=== PATIENT | female | born 1950 | race Caucasian/White ===

== ENCOUNTER → 2018-06-18 08:03 | Outpatient (CLI) | payer OTHER, SELFPAY ==
--- NOTE | 2018-06-18 08:07 | DI.MG.S_ITS ---
BILATERAL DIGITAL SCREENING MAMMOGRAM 3D/2D WITH CAD: 06/18/2018 CLINICAL: Routine screening. Comparison is made to exams dated: 11/08/2009 mammogram, 12/28/2008 mammogram, and 12/13/2008 mammogram - [facility]. The tissue of both breasts is heterogeneously dense. This may lower the sensitivity of mammography. Current study was also evaluated with a Computer Aided Detection (CAD) system. No significant masses, calcifications, or other findings are seen in either breast. There has been no significant interval change. IMPRESSION: NEGATIVE There is no mammographic evidence of malignancy. A 1 year screening mammogram is recommended. This exam was interpreted at Station ID: [id number]. NOTE: For mammograms, a report in lay terms will be sent to the patient. Approximately 15% of breast malignancies will not be visualized mammographically. In the management of a palpable breast mass, a negative mammogram must not discourage biopsy of a clinically suspicious lesion. Electronically Signed By: Jatin vallejo/cinthia:06/18/2018 17:13:27 letter sent: Normal Exam ACR BI-RADS Category 1: Negative 3341F
== END ==
PROVIDERS: PCP Family Medicine; Visit Provider Family Medicine
DX: Z12.31 Encounter for screening mammogram for malignant neoplasm of breast (principal)
CPT/HCPCS: 77063; 77067

== ENCOUNTER → 2018-06-25 15:03 | Outpatient (CLI) | payer OTHER, SELFPAY | PROVIDERS: PCP Family Medicine; Visit Provider Family Medicine | DX: N89.8 Other specified noninflammatory disorders of vagina (principal) | CPT/HCPCS: 87070; 87077; 87147; 87205 ==

== ENCOUNTER → 2018-09-09 07:51 | Outpatient (CLI) | payer OTHER, SELFPAY | PROVIDERS: PCP Family Medicine; Visit Provider Family Medicine | DX: Z13.9 Encounter for screening, unspecified (principal) ==

== ENCOUNTER → 2018-09-10 08:29 | Outpatient (CLI) | payer OTHER, SELFPAY ==
[2018-09-10 09:15] LABS: Hematocrit 40.8 % (36-46); Hemoglobin 13.8 g/dL (12.0-16.0); Mean Corpuscular HGB Conc 33.9 % (30-36); Mean Corpuscular Hemoglobin 31.2 PG (26-34); Platelet Count 298 X10^3/uL (150-400); Red Blood Cell Count 4.44 X10^6/uL (4.0-5.2); Red Cell Distribution Width 12.9 % (11.6-14.8); White Blood Cell Count 7.9 X10^3/uL (4.5-11.0)
[2018-09-10 09:16] LABS: Add Manual Diff / Slide Review YES
[2018-09-10 09:23] LABS: Appearance Urine UA CLEAR; Bilirubin Urine UA NEGATIVE (NEGATIVE); Color Urine UA YELLOW; Glucose Urine UA NEGATIVE (Negative); Ketones Urine UA NEGATIVE (NEGATIVE); Leukocyte Esterase Urine UA TRACE (NEGATIVE); Nitrite Urine UA NEGATIVE (Negative); Occult Blood Urine UA TRACE-INTACT (Negative); Protein Urine UA NEGATIVE (Negative); Urobilinogen Urine UA 0.2 E.U./dL (0.2)
[2018-09-10 09:27] LABS: Bacteria Urine None Seen
[2018-09-10 09:30] LABS: Neutrophils Absolute Manual 3318 /uL (3000-5900); Total Cells Counted 100
[2018-09-10 09:32] LABS: Culture Indicated Urine Cult Not Indicated; RBC Urine 1-5/HPF (0-5/HPF); Squamous Epithelial Cell Urine 5-10 /HPF; WBC Urine 5-10/HPF (0-5/HPF)
[2018-09-10 10:03] LABS: Alanine Aminotransferase 16 IU/L (9-52); Albumin 4.5 g/dL (3.5-5.0); Albumin Globulin Ratio 1.5 (1.0-2.8); Alkaline Phosphatase 91 U/L (38-126); Aspartate Aminotransferase 22 IU/L (14-36); Bilirubin Total 0.4 mg/dL (0.2-1.3); Blood Urea Nitrogen 16 mg/dL (7-17); Calcium 9.2 mg/dL (8.4-10.2); Carbon Dioxide 25 mmol/L (22-32); Chloride 107 mmol/L (98-107); Cholesterol 222 mg/dL (140-199); Estimated Glomerular Filt Rate > 60.0 mL/min (>60); Globulin 3.1 g/dL (1.7-4.1); Glucose 99 mg/dL (80-110); HDL Cholesterol 47 mg/dL (40-60); HEMOLYSIS < 15 (0-50); LDL Cholesterol Calculated 152 mg/dL (<100); Potassium 4.5 mmol/L (3.4-5.1); Sodium 141 mmol/L (137-145); Total Protein 7.6 g/dL (6.3-8.2); Triglycerides 117 mg/dL (35-150)
[2018-09-10 10:26] LABS: Thyroid Stimulating Hormone 2.14 uIU/mL (0.47-4.68)
[2018-09-10 10:27] LABS: Cancer Antigen 125 10 U/mL (0-35)
== END ==
PROVIDERS: PCP Family Medicine; Visit Provider Family Medicine
DX: Z00.00 Encounter for general adult medical examination without abnormal findings (principal); Z51.81 Encounter for therapeutic drug level monitoring; Z80.41 Family history of malignant neoplasm of ovary
CPT/HCPCS: 36415; 80053; 80061; 81003; 81015; 84443; 85025; 86304

== ENCOUNTER → 2018-09-17 11:52 | Outpatient (CLI) | payer OTHER, SELFPAY ==
[2018-09-17 12:21] LABS: Hematocrit 42.5 % (36-46); Hemoglobin 14.2 g/dL (12.0-16.0); Mean Corpuscular HGB Conc 33.4 % (30-36); Mean Corpuscular Hemoglobin 30.6 PG (26-34); Mean Corpuscular Volume 91.6 fL (80-100); Platelet Count 296 X10^3/uL (150-400); Red Blood Cell Count 4.63 X10^6/uL (4.0-5.2); Red Cell Distribution Width 12.5 % (11.6-14.8); White Blood Cell Count 10.2 X10^3/uL (4.5-11.0)
[2018-09-17 12:43] LABS: Hypochromasia 1+; Neutrophils Absolute Manual 4692 /uL (3000-5900); Total Cells Counted 100
[2018-09-17 12:44] LABS: Anisocytosis 1+
== END ==
PROVIDERS: PCP Family Medicine; Visit Provider Family Medicine
DX: R79.89 Other specified abnormal findings of blood chemistry (principal)
CPT/HCPCS: 36415; 85025

== ENCOUNTER → 2020-01-11 13:48 | Outpatient (CLI) | payer OTHER, SELFPAY ==
[2020-01-13 23:35] LABS: COVID19 Sendout Not Detected (Not Detected)
== END ==
PROVIDERS: PCP Family Medicine; Visit Provider Registered Nurse
DX: Z11.59 Encounter for screening for other viral diseases (principal)
CPT/HCPCS: 87635

== ENCOUNTER → 2020-05-29 14:01 | Outpatient (CLI) | payer OTHER, SELFPAY ==
[2020-05-30 06:50] LABS: COVID19 Sendout Not Detected (Not Detect)
== END ==
PROVIDERS: PCP Family Medicine; Visit Provider Physician Assistant
DX: Z11.59 Encounter for screening for other viral diseases (principal)
CPT/HCPCS: 87635

== ENCOUNTER → 2020-08-25 08:18 | Outpatient (CLI) | payer OTHER, SELFPAY ==
--- NOTE | 2020-08-25 08:19 | DI.MG.S_ITS ---
BILATERAL DIGITAL SCREENING MAMMOGRAM 3D/2D WITH CAD: 08/25/2020 CLINICAL: Routine screening. Comparison is made to exams dated: 06/18/2018 mammogram, 11/08/2009 mammogram, and 12/13/2008 mammogram - [facility]. The tissue of both breasts is heterogeneously dense. This may lower the sensitivity of mammography. Current study was also evaluated with a Computer Aided Detection (CAD) system. No significant masses, calcifications, or other findings are seen in either breast. There has been no significant interval change. IMPRESSION: NEGATIVE There is no mammographic evidence of malignancy. A 1 year screening mammogram is recommended. This exam was interpreted at Station ID: [id number]. NOTE: For mammograms, a report in lay terms will be sent to the patient. Approximately 15% of breast malignancies will not be visualized mammographically. In the management of a palpable breast mass, a negative mammogram must not discourage biopsy of a clinically suspicious lesion. Electronically Signed By: Joce Barbosa M.D., jr/cinthia:08/27/2020 09:07:48 letter sent: Normal Exam ACR BI-RADS Category 1: Negative 3341F
== END ==
PROVIDERS: PCP Internal Medicine; Referring Provider Internal Medicine; Visit Provider Internal Medicine
DX: Z12.31 Encounter for screening mammogram for malignant neoplasm of breast (principal)
CPT/HCPCS: 77063; 77067

== ENCOUNTER → 2020-12-07 09:04 | Outpatient (CLI) | payer OTHER, SELFPAY ==
[2020-12-07 11:29] LABS: COVID19 -Nasal RAPID Negative (Negative)
== END ==
PROVIDERS: PCP Internal Medicine; Visit Provider Surgery
DX: Z01.812 Encounter for preprocedural laboratory examination (principal); Z20.822 Contact with and (suspected) exposure to COVID-19
CPT/HCPCS: 87635; C9803

== ENCOUNTER 2020-12-10 08:48 | Day surgery (SDC) | payer OTHER, SELFPAY ==
[2020-12-10] MEDS: LACTATED RINGERS 1,000 ML 200 ML IV (08:57)
[2020-12-10 09:06] VITALS: BP 120/80; PULSE 83; RESP 16; TEMP 36.7; O2SAT 100; BMI 57.9
--- NOTE | 2020-12-10 09:59 | PM.HP.1 ---
History of Present Illness History of Present Illness Date Patient Seen: 12/10/20 Time Patient Seen: 09:59 Chief complaint: SDC Narrative: The patient presents for colorectal sreening. Most recent colonoscopy 10 years ago was normal.. No personal or family history of colon cancer. On further history denies any recent gastrointestinal symptoms. No nausea, vomiting, abdominal pain, loss of appetite, unexplained weight loss, change in bowel habits, diarrhea, constipation, melena, hematochezia, or bright red blood per rectum. 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) Surgical History H/O section Family & Social History Family History Mother Age related osteoporosis Ovarian cancer Father Dementia Grandfather FH: prostate cancer Brother Heart disease Social History: household members spouse Tobacco & Substance use: Smoking Status Never smoker alcohol intake frequency a few times a month Substance Use Type does not use Meds Home Medications and Allergies Home Medications Medication Instructions Recorded Confirmed Type ASPIRIN (Aspir-Low) 81 mg PO PRN #0 02/13/11 12/10/20 History Allergies Allergy/AdvReac Type Severity Reaction Status Date / Time moxifloxacin [MOXIFLOXACIN] Allergy Unknown Verified 07/06/20 09:08 Review of Systems Review of Systems ROS: Yes All systems reviewed with the patient and are negative except as otherwise documented Exam Vital Signs (past 8 hours): - 12/10/20 09:06 Temperature 98.1 F Pulse Rate 83 Respiratory Rate 16 Blood Pressure 120/80 Pulse Oximetry 100 Oxygen Delivery Method Room Air Narrative Exam Narrative: GENERAL-well developed adult woman, no acute distress HEENT-no scleral icterus, hearing intact NECK-no JVD, trachea midline CVS- regular rate, no peripheral edema RESP-unlabored respiratory effort, no audible wheezing GI-soft, nontender nondistended MSK-no cyanosis or clubbing, extremities without deformity SKIN-warm, dry NEURO-alert and oriented, no focal deficits PYSCH-Appropriate mood and affect Assessment & Plan Assessment & Plan narrative: The patient requires colorectal screening and colonoscopy is recommended. Technical details were discussed. Risks, benefits, alternatives explained. Risks including but not limited to myocardial infarction, aspiration, bleeding, pain, missed lesion, incomplete examination, need for further radiographic studies, colonic perforation, and need for major abdominal surgery were discussed. All questions were answered to their satisfaction, and they are in agreement with this plan.
[2020-12-10] MEDS: fentaNYL 250 MCG/5 ML INJ IV (10:16)
[2020-12-10] MEDS: MIDAZOLAM 5 MG/5 ML VIAL IV (10:16)
--- NOTE | 2020-12-10 10:27 | PM.OP.ENDO ---
Operative Date/Time/Diagnoses Date of procedure: 12/10/20 Time of procedure: 10:27 Pre-op diagnosis: Screening colonoscopy Post-op diagnosis: same Procedure & Clinicians Study performed: Colonoscopy Same procedure as scheduled: Yes Indications: Screening colonoscopy Surgeon: Kurt Coon Procedure Notes Procedure in detail: Medications: Conscious sedation using 5 mg IV midazolam and 150 mcg IV of fentanyl The history and physical was performed/updated and the patient is ASA class is 1. The procedure was discussed in detail with the patient. Potential risks complications including infection, bleeding, missed diagnosis, perforation, need for surgery, and were explained. Their questions were answered and informed consent was obtained. Patient was brought to the procedure room and placed standard monitoring equipment. The patient's vital signs were monitored continuously throughout the entire procedure. Prior to starting time-out was performed. The patient was placed in the left lateral recumbent position. Procedural sedation was administered. Examination began with a thorough inspection of the perianal area there was no evidence of fissures, fistulae, external hemorrhoids or cutaneous malignancy. The colonoscopy scope was then placed into the anal canal and was advanced to the cecum, which was identified by the ileocecal valve, the appendiceal orifice and the confluence of the taenia. The scope was then slowly withdrawn examining colon thoroughly in all directions, irrigating it of any residual stool. 1. No masses or polyps 2. Grade 1 internal hemorrhoids The patient tolerated the procedure well. They will be discharged once criteria are met. The prep was of good/excellent quality. The withdrawl time was 7 minutes. The sedation time was 16 minutes. Specimen(s): none sent Impression: Normal colonoscopy Post-procedure Recommendations: Colonscopy in 10 years and High fiber diet Disposition: same day surgery
[2020-12-10 10:29] VITALS: BP 142/65; PULSE 80; RESP 10; TEMP 36.3; O2SAT 95
[2020-12-10 10:38] VITALS: BP 111/67; PULSE 80; RESP 12; O2SAT 96
[2020-12-10 10:43] VITALS: BP 114/70; PULSE 80; RESP 14; TEMP 36.6; O2SAT 95
[2020-12-10 11:10] VITALS: BP 123/81; PULSE 75; RESP 16; TEMP 36.3; O2SAT 100
== END 2020-12-10 11:22 | disposition home or self-care (01) ==
PROVIDERS: PCP Internal Medicine; Referring Provider Surgery; Visit Provider Surgery
PROC: 0DJD8ZZ Inspection of Lower Intestinal Tract, Via Natural or Artificial Opening Endoscopic (ICD-10-PCS; CPT 45378; principal; 2020-12-10 10:00)
DX: Z12.11 Encounter for screening for malignant neoplasm of colon (principal); K64.0 First degree hemorrhoids
CPT/HCPCS: G0121; 99152; J2250; J3010

== ENCOUNTER → 2021-05-07 15:08 | Outpatient (CLI) | payer OTHER, SELFPAY | PROVIDERS: PCP Internal Medicine; Referring Provider Internal Medicine; Visit Provider Internal Medicine | DX: M85.80 Other specified disorders of bone density and structure, unspecified site (principal); Z78.0 Asymptomatic menopausal state; M85.852 Other specified disorders of bone density and structure, left thigh; M85.851 Other specified disorders of bone density and structure, right thigh | CPT/HCPCS: 77080 ==

== ENCOUNTER → 2021-08-26 16:26 | Outpatient (CLI) | payer OTHER, SELFPAY ==
--- NOTE | 2021-08-26 16:29 | DI.MG.S_ITS ---
BILATERAL DIGITAL SCREENING MAMMOGRAM 3D/2D WITH CAD: 08/26/2021 CLINICAL: Routine screening. Comparison is made to exams dated: 08/25/2020 mammogram, 06/18/2018 mammogram, and 11/08/2009 mammogram - [facility]. The tissue of both breasts is heterogeneously dense. This may lower the sensitivity of mammography. Current study was also evaluated with a Computer Aided Detection (CAD) system. No significant masses, calcifications, or other findings are seen in either breast. There has been no significant interval change. IMPRESSION: NEGATIVE There is no mammographic evidence of malignancy. A 1 year screening mammogram is recommended. This exam was interpreted at Station ID: [id number]. NOTE: For mammograms, a report in lay terms will be sent to the patient. Approximately 15% of breast malignancies will not be visualized mammographically. In the management of a palpable breast mass, a negative mammogram must not discourage biopsy of a clinically suspicious lesion. Electronically Signed By: Thomas jett/cinthia:08/27/2021 09:11:57 letter sent: Normal Exam ACR BI-RADS Category 1: Negative 3341F
== END ==
PROVIDERS: PCP Internal Medicine; Referring Provider Internal Medicine; Visit Provider Internal Medicine
DX: Z12.31 Encounter for screening mammogram for malignant neoplasm of breast (principal)
CPT/HCPCS: 77063; 77067

== ENCOUNTER → 2022-02-07 07:04 | Outpatient (CLI) | payer OTHER, SELFPAY ==
[2022-02-07 09:37] LABS: Erythrocyte Sedimentation Rate 18 MM/HR (0-20)
[2022-02-07 09:53] LABS: Alanine Aminotransferase 14 IU/L (<35); Albumin 4.3 g/dL (3.5-5.0); Albumin Globulin Ratio 1.5 (1.0-2.8); Alkaline Phosphatase 88 U/L (38-126); Aspartate Aminotransferase 25 IU/L (14-36); BUN Creatinine Ratio 19.3 (6-22); Bilirubin Total 0.4 mg/dL (0.2-1.3); Blood Urea Nitrogen 17 mg/dL (7-17); Calcium 9.1 mg/dL (8.4-10.2); Carbon Dioxide 27 mmol/L (22-32); Chloride 106 mmol/L (98-107); Cholesterol 207 mg/dL (140-199); Estimated Glomerular Filt Rate > 60 mL/min (>60); Globulin 2.9 g/dL (1.7-4.1); Glucose 100 mg/dL (80-110); HDL Cholesterol 50 mg/dL (40-60); HEMOLYSIS < 15 (0-50); LDL Cholesterol Calculated 131 mg/dL (<100); Potassium 4.9 mmol/L (3.4-5.1); Sodium 140 mmol/L (137-145); Total Protein 7.2 g/dL (6.3-8.2); Triglycerides 129 mg/dL (35-150)
== END ==
PROVIDERS: PCP Internal Medicine; Referring Provider Internal Medicine; Visit Provider Internal Medicine
DX: Z13.6 Encounter for screening for cardiovascular disorders (principal); M25.50 Pain in unspecified joint; N95.1 Menopausal and female climacteric states
CPT/HCPCS: 36415; 80053; 80061; 85651

== ENCOUNTER → 2022-06-24 10:37 | Outpatient (CLI) | payer OTHER, SELFPAY | PROVIDERS: Family Provider Internal Medicine; PCP Internal Medicine; Referring Provider Internal Medicine; Visit Provider Internal Medicine ==

== ENCOUNTER → 2022-09-03 15:15 | Outpatient (CLI) | payer OTHER, SELFPAY ==
--- NOTE | 2022-09-03 | DI.MG.S_ITS ---
BILATERAL DIGITAL SCREENING MAMMOGRAM 3D/2D WITH CAD: 09/03/2022 CLINICAL: Routine screening. Comparison is made to exams dated: 08/26/2021 mammogram, 08/25/2020 mammogram, 06/18/2018 mammogram, 12/28/2008, and 11/08/2009 mammogram - [facility]. Both breasts are heterogeneously dense, which may obscure small masses (category c / 51-75% glandular tissue). Current study was also evaluated with a Computer Aided Detection (CAD) system. No significant masses, calcifications, or other findings are seen in either breast. There has been no significant interval change. IMPRESSION: NEGATIVE There is no mammographic evidence of malignancy. A 1 year screening mammogram is recommended. Based on the Tyrer Cuzick model (a risk assessment model) the patient's lifetime risk is 7.3% and her 10 year risk is 4.7%. According to the ACR, ACS, and NCCN guidelines, an annual breast MRI exam along with mammogram is recommended if the patient's lifetime risk is 20% or greater. This exam was interpreted at Station ID: [id number]. NOTE: For mammograms, a report in lay terms will be sent to the patient. Approximately 15% of breast malignancies will not be visualized mammographically. In the management of a palpable breast mass, a negative mammogram must not discourage biopsy of a clinically suspicious lesion. Electronically Signed By: Joce Barbosa M.D., jr/cinthia:09/04/2022 13:28:01 letter sent: Normal Exam ACR BI-RADS Category 1: Negative 3341F
== END ==
PROVIDERS: Family Provider Internal Medicine; PCP Internal Medicine; Referring Provider Internal Medicine; Visit Provider Internal Medicine
DX: Z12.31 Encounter for screening mammogram for malignant neoplasm of breast (principal)
CPT/HCPCS: 77063; 77067

== ENCOUNTER 2022-11-04 14:26 | Outpatient (RCR) | payer OTHER, SELFPAY ==
--- NOTE | 2022-11-04 16:00 | PT.OIE ---
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) Past Surgical History (Last Reviewed 12/10/20 @ 09:59 by Kurt Coon MD) H/O section Visit Care Team Role Provider Type Wilmer Johnson MD Attending Provider Physician Family Provider Primary Care Provider Referring Provider Specialty: Internal Medicine Address: [address] [place] [address], [address], [facility] Email: [email or web address] Physical Therapy Initial Evaluation PT-OP-A Visit Information Start: 11/04/22 11:21 Freq: Status: Active Protocol: Document 11/04/22 14:39 AMB (Rec: 11/04/22 15:49 AMB [id number]) Out-Patient Physical Therapy Visit Information Visit Information Visit Type Initial Evaluation Visit Start Time 14:30 Visit Stop Time 15:15 Total Visit Minutes 45 Visit Number 1 PT-OP-B Current Condition Start: 11/04/22 11:21 Freq: Status: Active Protocol: Document 11/04/22 14:39 AMB (Rec: 11/04/22 15:49 AMB [id number]) Current Condition History of Current Condition Onset Date 1 year Current Complaints leaking a night History of Current Condition Worst since menopause, became noticable during the pandemic. Leaking at night. If has a full bladder and sneezes can leak. Not even aware of when leaking, when waking up between 2-3 has to change underwear, if pt has had a lot of fluid in the evening that certainly makes it worse. Did get a yeast infection in August and did have pain with inserting the applicator. . Does notice running water as being a trigger intermittently . Personal Factors Other Personal Factors That May Effect Hx 3 c sections Therapy/Recovery PT-OP-C Subjective Start: 11/04/22 11:21 Freq: Status: Active Protocol: Document 11/04/22 14:39 AMB (Rec: 11/09/22 10:05 AMB [id number]) Patient Questionnaires Pelvic Pain and Urgency/Frequency Patient Symptom Scale Pelvic Pain Score 7 PT-OP-I Pelvic Floor Start: 11/04/22 11:21 Freq: Status: Active Protocol: Document 11/04/22 14:39 AMB (Rec: 11/04/22 15:49 AMB [id number]) Pelvic Floor Assessment Urine Pelvic Floor Surgery No Urinary Symptoms Urge Sensation,Dribbling After Urination,Pain Leakage Size Small Other Leakage Causes sleep Leaks Per Day 1 Voiding Frequency 5-6/day Nocturia 2 Pelvic Clock Pelvic Clock Other tenderness throughout pelvic floor, most at perineum Prolapse Prolapse Comments difficult to assess due to discomfort, no rectocele or uterine prolapse noted Contraction Ability Voluntary Contraction Moderate Voluntary Relaxation Moderate Manual Muscle Testing Left 3 Manual Muscle Testing Right 3 Manual Muscle Testing Anterior 3 Manual Muscle Testing Posterior 3 Muscle Endurance (Seconds) 8 Number of Quick Contractions In 10 4 Seconds Comments Pelvic Floor Comments Good first layer contraction, levator ani had reduced lift PT-OP-T Assessment and Plan Start: 11/04/22 11:21 Freq: Status: Active Protocol: Document 11/04/22 14:39 AMB (Rec: 11/04/22 15:49 AMB [id number]) Physical Therapy Assessment Goals 2 Impairment Pelvic floor strength Short Term Goal (STG) Inga will show improved pelvic floor strength by moving from sit to stand while holding a pelvic floor contraction. STG Duration 10 weels One Impairment Continence Short Term Goal (STG) Inga will roll over in bed without leaking. STG Duration 5 weeks Correction Goal (LTG) Inga will get up from bed without leaking. LTG Duration 10 weeks Assessment Summary Assessment Inga attends physical therapy most concerned about worsening urinary leaking at night. She states leaking has been present since menopause with a full bladder and a sneeze, but now she will wake up at night and realize her underwear are wet. She is not aware of what is causing the leaking. Pelvic floor muscles when tested were moderately strong especially considering age and post menopausal status . Pt will benefit from further strengthening and assessment of her leaking. Physical Therapy Plan Frequency and Duration Frequency of Treatment 1x/Week Duration of treatment (weeks) 10 Plan of Care Start Date 11/04/22 Plan of Care End Date 01/13/23 Therapeutic Interventions Therapeutic Interventions Home Exercise Program,Manual Therapy,Neuromuscular Re- education,Patient/Caregiver Education,Therapeutic Activities,Therapeutic Exercises Modalities Biofeedback,Electric Stimulation Next Visit Focus/Plan Next Note Type Treatment Note Next Visit Plan Review pelvic floor strengthening exercises, can try sEMG
--- NOTE | 2022-11-04 16:00 | PT.OPPOC ---
Physical, Occupational & Speech Therapy At [facility] Current Diagnoses Unspecified urinary incontinence (11/04/22) Visit Care Team Role Provider Type Wilmer Johnson MD Attending Provider Physician Family Provider Primary Care Provider Referring Provider Specialty: Internal Medicine Address: [address] [place] [address], [address], [address] Email: [email or web address] Plan Of Care PT-OP-T Assessment and Plan Start: 11/04/22 11:21 Freq: Status: Active Protocol: Document 11/04/22 14:39 AMB (Rec: 11/04/22 15:49 AMB [id number]) Physical Therapy Assessment Goals 2 Impairment Pelvic floor strength Short Term Goal (STG) Inga will show improved pelvic floor strength by moving from sit to stand while holding a pelvic floor contraction. STG Duration 10 weels One Impairment Continence Short Term Goal (STG) Inga will roll over in bed without leaking. STG Duration 5 weeks Craft Superintendent Goal (LTG) Inga will get up from bed without leaking. LTG Duration 10 weeks Assessment Summary Assessment Inga attends physical therapy most concerned about worsening urinary leaking at night. She states leaking has been present since menopause with a full bladder and a sneeze, but now she will wake up at night and realize her underwear are wet. She is not aware of what is causing the leaking. Pelvic floor muscles when tested were moderately strong especially considering age and post menopausal status . Pt will benefit from further strengthening and assessment of her leaking. Physical Therapy Plan Frequency and Duration Frequency of Treatment 1x/Week Duration of treatment (weeks) 10 Plan of Care Start Date 11/04/22 Plan of Care End Date 01/13/23 Therapeutic Interventions Therapeutic Interventions Home Exercise Program,Manual Therapy,Neuromuscular Re- education,Patient/Caregiver Education,Therapeutic Activities,Therapeutic Exercises Modalities Biofeedback,Electric Stimulation Next Visit Focus/Plan Next Note Type Treatment Note Next Visit Plan Review pelvic floor strengthening exercises, can try sEMG Plan of Care Dates Plan of Care Start Date 11/04/22 Plan of Care End Date 01/13/23 Electronically Signed by: Letitia Hooper, PT 11/09/22 1952 If you are in agreement with this Plan of Care, please return a signed and dated copy. I have reviewed this Plan of Care and certify that the skilled therapy services above are required to meet the patient?s needs. Physician Signature Date Printed Name and Credentials Clinical Instructor Signature Printed Name and Credentials
--- NOTE | 2023-03-18 15:47 | PT.OPDS ---
Current Diagnoses Unspecified urinary incontinence (11/04/22) Visit Care Team Role Provider Type Wilmer Johnson MD Attending Provider Physician Family Provider Primary Care Provider Referring Provider Specialty: Internal Medicine Address: [address] [place] [address], [address], [place], [address] Email: [email or web address] Visit Number Visit Number 1 Discharge Summary PT-OP-B Current Condition Start: 11/04/22 11:21 Freq: Status: Active Protocol: Document 11/04/22 14:39 AMB (Rec: 11/04/22 15:49 AMB [id number]) Current Condition History of Current Condition Onset Date 1 year Current Complaints leaking a night History of Current Condition Worst since menopause, became noticable during the pandemic. Leaking at night. If has a full bladder and sneezes can leak. Not even aware of when leaking, when waking up between 2-3 has to change underwear, if pt has had a lot of fluid in the evening that certainly makes it worse. Did get a yeast infection in August and did have pain with inserting the applicator. . Does notice running water as being a trigger intermittently . Personal Factors Other Personal Factors That May Effect Hx 3 c sections Therapy/Recovery PT-OP-C Subjective Start: 11/04/22 11:21 Freq: Status: Active Protocol: Document 11/04/22 14:39 AMB (Rec: 11/09/22 10:05 AMB [id number]) Patient Questionnaires Pelvic Pain and Urgency/Frequency Patient Symptom Scale Pelvic Pain Score 7 PT-OP-I Pelvic Floor Start: 11/04/22 11:21 Freq: Status: Active Protocol: Document 11/04/22 14:39 AMB (Rec: 11/04/22 15:49 AMB [id number]) Pelvic Floor Assessment Urine Pelvic Floor Surgery No Urinary Symptoms Urge Sensation,Dribbling After Urination,Pain Leakage Size Small Other Leakage Causes sleep Leaks Per Day 1 Voiding Frequency 5-6/day Nocturia 2 Pelvic Clock Pelvic Clock Other tenderness throughout pelvic floor, most at perineum Prolapse Prolapse Comments difficult to assess due to discomfort, no rectocele or uterine prolapse noted Contraction Ability Voluntary Contraction Moderate Voluntary Relaxation Moderate Manual Muscle Testing Left 3 Manual Muscle Testing Right 3 Manual Muscle Testing Anterior 3 Manual Muscle Testing Posterior 3 Muscle Endurance (Seconds) 8 Number of Quick Contractions In 10 4 Seconds Comments Pelvic Floor Comments Good first layer contraction, levator ani had reduced lift PT-OP-T Assessment and Plan Start: 11/04/22 11:21 Freq: Status: Active Protocol: Document 03/18/23 15:46 AMB (Rec: 03/18/23 15:47 AMB [id number]) Physical Therapy Assessment Goals 2 Impairment Pelvic floor strength Short Term Goal (STG) Inga will show improved pelvic floor strength by moving from sit to stand while holding a pelvic floor contraction. STG Duration 10 weels One Impairment Continence Short Term Goal (STG) Inga will roll over in bed without leaking. STG Duration 5 weeks Care Home Goal (LTG) Inga will get up from bed without leaking. LTG Duration 10 weeks Assessment Summary Assessment Pt requested d/c after eval. Physical Therapy Plan Discharge Physical Therapy Discharge Reasons Patient Request
== END 2023-03-19 14:07 | disposition home or self-care (01) ==
LOC: PHYS 14:26
PROVIDERS: Family Provider Internal Medicine; PCP Internal Medicine; Referring Provider Internal Medicine; Visit Provider Internal Medicine
DX: R32 Unspecified urinary incontinence (principal)
CPT/HCPCS: 97161

== ENCOUNTER → 2023-09-25 12:50 | Outpatient (CLI) | payer OTHER, SELFPAY ==
--- NOTE | 2023-09-25 12:52 | DI.MG.S_ITS ---
BILATERAL DIGITAL SCREENING MAMMOGRAM 3D/2D WITH CAD: 09/25/2023 CLINICAL: Routine screening. Comparison is made to exams dated: 09/03/2022 mammogram, 08/26/2021 mammogram, and 08/25/2020 mammogram - [facility]. Both breasts are heterogeneously dense, which may obscure small masses (category c / 51-75% glandular tissue). Current study was also evaluated with a Computer Aided Detection (CAD) system. No significant masses, calcifications, or other findings are seen in either breast. There has been no significant interval change. IMPRESSION: NEGATIVE There is no mammographic evidence of malignancy. A 1 year screening mammogram is recommended. Based on the Tyrer Cuzick model (a risk assessment model) the patient's lifetime risk is 7.0% and her 10 year risk is 4.8%. According to the ACR, ACS, and NCCN guidelines, an annual breast MRI exam along with mammogram is recommended if the patient's lifetime risk is 20% or greater. This exam was interpreted at Station ID: [id number]. NOTE: For mammograms, a report in lay terms will be sent to the patient. Approximately 15% of breast malignancies will not be visualized mammographically. In the management of a palpable breast mass, a negative mammogram must not discourage biopsy of a clinically suspicious lesion. Electronically Signed By: Sourav lawson/cinthia:09/25/2023 15:44:05 letter sent: Normal Exam ACR BI-RADS Category 1: Negative 3341F
== END ==
PROVIDERS: Family Provider Internal Medicine; PCP Internal Medicine; Referring Provider Internal Medicine; Visit Provider Internal Medicine
DX: Z12.31 Encounter for screening mammogram for malignant neoplasm of breast (principal); R92.333 Mammographic heterogeneous density, bilateral breasts
CPT/HCPCS: 77063; 77067

== ENCOUNTER → 2024-07-07 07:02 | Outpatient (CLI) | payer OTHER, SELFPAY ==
[2024-07-07 07:52] LABS: Add Manual Diff / Slide Review NO; Basophils Absolute Auto 100 /uL (0-100); Basophils Percent Auto 1.2 % (0-2); Eosinophils Absolute Auto 500 /uL (0-450); Eosinophils Percent Auto 7.1 % (2-4); Hemoglobin 13.4 g/dL (12.0-16.0); Lymphocytes Absolute Auto 2500 /uL (1100-4500); Lymphocytes Percent Auto 34.1 % (25-40); Mean Corpuscular HGB Conc 33.6 % (30-36); Mean Corpuscular Hemoglobin 30.9 PG (26-34); Mean Corpuscular Volume 92.1 fL (80-100); Monocytes Absolute Auto 600 /uL (0-900); Monocytes Percent Auto 7.9 % (3-14); Neutrophils Absolute Auto 3700 /uL (1500-7000); Neutrophils Percent Auto 49.7 % (50-75); Platelet Count 307 X10^3/uL (150-400); Red Blood Cell Count 4.34 X10^6/uL (4.0-5.2); Red Cell Distribution Width 12.6 % (11.6-14.8); White Blood Cell Count 7.4 X10^3/uL (4.5-11.0)
[2024-07-07 08:17] LABS: Alanine Aminotransferase 21 IU/L (<35); Albumin 4.3 g/dL (3.5-5.0); Albumin Globulin Ratio 1.7 (1.0-2.8); Alkaline Phosphatase 84 U/L (38-126); Aspartate Aminotransferase 27 IU/L (14-36); BUN Creatinine Ratio 21.1 (6-22); Bilirubin Total 0.4 mg/dL (0.2-1.3); Blood Urea Nitrogen 19 mg/dL (7-17); C-Reactive Protein Quant 0.6 mg/dL (<1.0); Calcium 9.4 mg/dL (8.4-10.2); Carbon Dioxide 25 mmol/L (22-32); Chloride 106 mmol/L (98-107); Cholesterol 206 mg/dL (140-199); Estimated Glomerular Filt Rate > 60 mL/min (>60); Globulin 2.6 g/dL (1.7-4.1); Glucose 115 mg/dL (80-110); HDL Cholesterol 52 mg/dL (40-60); HEMOLYSIS < 15 (0-50); LDL Cholesterol Calculated 134 mg/dL (<100); Potassium 4.5 mmol/L (3.4-5.1); Sodium 139 mmol/L (137-145); Total Protein 6.9 g/dL (6.3-8.2); Triglycerides 101 mg/dL (35-150)
[2024-07-07 08:44] LABS: TSH w/ Reflex to FT4 1.68 uIU/mL (0.47-4.68)
[2024-07-07 08:51] LABS: Erythrocyte Sedimentation Rate 15 MM/HR (0-20)
== END ==
PROVIDERS: Family Provider Internal Medicine; PCP Internal Medicine; Referring Provider Internal Medicine; Visit Provider Internal Medicine
DX: D64.9 Anemia, unspecified (principal); E03.9 Hypothyroidism, unspecified; N95.1 Menopausal and female climacteric states; E78.5 Hyperlipidemia, unspecified
CPT/HCPCS: 36415; 80053; 80061; 84443; 85025; 85651; 86140

== ENCOUNTER → 2024-11-04 11:23 | Outpatient (CLI) | payer OTHER, SELFPAY ==
--- NOTE | 2024-11-04 11:24 | DI.MG.S_ITS ---
MM screening mammo BI: 11/04/2024. BI-RADS: 2 CLINICAL: 73-year old female for bilateral screening mammogram. Tyrer-Cuzick lifetime risk of 7.2%. No personal or first-degree family history of breast cancer. History of ovarian cancer in one first-degree relative. PRIOR EXAMS 09/25/2023, 09/03/2022, 08/26/2021, 08/25/2020, 06/18/2018. MAMMOGRAPHY TECHNIQUE: 2D and 3D (tomosynthesis) digital mammographic views obtained, with additional images as needed for full coverage. Current study was also evaluated with a Computer Aided Detection (CAD) system. DENSITY C. The breasts are heterogeneously dense, which may obscure small masses. MAMMOGRAPHY FINDINGS Bilateral: Benign-appearing masses noted. There are no suspicious masses, calcifications, or other findings in the breast. No significant change from comparison. IMPRESSION: * No evidence of malignancy with benign findings. RECOMMENDATIONS Bilateral * Annual screening mammography. OVERALL ASSESSMENT CATEGORY BI-RADS-2: Benign. The [employer] recommends annual screening mammography beginning at age 40 for women with average risk of breast cancer. ELECTRONICALLY SIGNED: Tika Farah M.D. on 11/04/2024 at 12:51:20 PM PT Interpreting Station ID: [id number]
== END ==
PROVIDERS: Family Provider Internal Medicine; PCP Internal Medicine; Referring Provider Internal Medicine; Visit Provider Internal Medicine
DX: Z12.31 Encounter for screening mammogram for malignant neoplasm of breast (principal); R92.333 Mammographic heterogeneous density, bilateral breasts; Z80.41 Family history of malignant neoplasm of ovary
CPT/HCPCS: 77063; 77067